=== PATIENT | female | born 1960 | race Caucasian/White ===

== ENCOUNTER 2019-05-27 16:16 | Emergency (ER) | payer MEDICARE, OTHER ==
[~2019-05-27] VITALS: Ht 165.1 cm; Wt 68.0 kg
--- NOTE | 2019-05-27 17:11 | PHYS DOC ---
Adult General Chief Complaint Chief Complaint: UPPER EXTREMITY INJURY HPI HPI Patient is a 58 year old female who presents with a fall that happened the legends while she was shopping after she slipped on ice around 4:00 PM. Patient is complaining of neck pain, left arm pain, and states she is on Plavix. She rates her pain as 9 out of 10 in severity and sharp. She's not had any medicine prior to arrival. (OTILIO SALGUERO APRN) Review of Systems Review of Systems Constitutional: Denies fever or chills [] Eyes: Denies change in visual acuity, redness, or eye pain [] HENT: Reports neck pain. Denies nasal congestion or sore throat [] Respiratory: Denies cough or shortness of breath [] Cardiovascular: No additional information not addressed in HPI [] GI: Denies abdominal pain, nausea, vomiting, bloody stools or diarrhea [] : Denies dysuria or hematuria [] Musculoskeletal: Reports L wrist, forearm, elbow, and shoulder pain.] Integument: Denies rash or skin lesions [] Neurologic: Denies headache, focal weakness or sensory changes [] Endocrine: Denies polyuria or polydipsia [] Complete systems were reviewed and found to be within normal limits, except as documented in this note. (OTILIO SALGUERO APRN) Current Medications Current Medications Current Medications Medications (Trade) Dose Ordered Sig/Kris Start Time Stop Time Status Last Admin Dose Admin Fentanyl Citrate (Fentanyl 2ml Vial) 75 mcg 1X ONCE 05/27/19 17:15 05/27/19 17:16 DC 05/27/19 17:15 75 MCG Ondansetron HCl (Zofran) 4 mg 1X ONCE 05/27/19 17:15 05/27/19 17:16 DC 05/27/19 17:15 4 MG (ARTIS BORREGO MD) Allergies Allergies Allergies Coded Allergies Type Severity Reaction Last Updated Verified iodine Allergy Severe Swelling 05/27/19 Yes Penicillins Allergy Intermediate Rash 05/27/19 Yes cefaclor Allergy Intermediate Rash 05/27/19 Yes erythromycin base Allergy Intermediate Rash 05/27/19 Yes (ARTIS BORREGO MD) Physical Exam Physical Exam Constitutional: Well developed, well nourished, no acute distress, non-toxic appearance. [] HENT: Normocephalic, atraumatic, bilateral external ears normal, oropharynx moist, no oral exudates, nose normal. [] Eyes: PERRLA, EOMI, conjunctiva normal, no discharge. [] Neck: Normal range of motion, c-spine tenderness, no stepoffs, supple, no stridor. [] Cardiovascular:Heart rate regular rhythm, no murmur [] Lungs & Thorax: Bilateral breath sounds clear to auscultation [] Abdomen: Bowel sounds normal, soft, no tenderness, no masses, no pulsatile masses. [] Skin: Warm, dry, no erythema, no rash. [] Back: No tenderness, no CVA tenderness. [] Extremities:Tenderness to L wrist, forearm, elbow, and humerus. Swelling at L wrist. Neurovascular intact. Neurologic: Alert and oriented X 3, normal motor function, normal sensory fun ction, no focal deficits noted. [] Psychologic: Affect normal, judgement normal, mood normal. [] (OTILIO SALGUERO APRN) Current Patient Data Vital Signs Vital Signs Date Time Temp Pulse Resp B/P (MAP) Pulse Ox O2 Delivery O2 Flow Rate FiO2 05/27/19 18:00 78 18 153/82 (105) 100 Room Air 05/27/19 16:45 98.0 98.0 (ARTIS BORREGO MD) EKG EKG [] (OTILIO SALGUERO APRN) Radiology/Procedures Radiology/Procedures [facility] [address] [place] [address] IMAGING REPORT Signed PATIENT: LEANN GOETZ JACCOUNT: [id number] : 1960 LOCATION: ER AGE: 58 SEX: F EXAM STATUS: REG ER ORD. PHYSICIAN: OTILIO SALGUERO APRN REASON: fall, HEAD AND NECK PAIN PROCEDURE: CT HEAD AND CERVICAL SPINE WO PQRS Compliance Statement: One or more of the following individualized dose reduction techniques were utilized for this examination: 1. Automated exposure control 2. Adjustment of the mA and/or kV according to patient size 3. Use of iterative reconstruction technique CT HEAD AND CERVICAL SPINE WITHOUT CONTRAST History: Fall, head and neck pain. Comparison: None. Procedure: Axial images are obtained of the head from the skull base through the vertex without IV contrast. Noncontrast helical CT of the cervical spine was performed. Axial, sagittal, and coronal reconstructions were obtained. Findings: The ventricles and sulci are normal for the patient's age. There is mild supratentorial white matter hypoattenuation. This is a nonspecific finding but is commonly due to chronic small vessel ischemic disease in a patient of this age. Other considerations include sequela of migraines or demyelinating disease. No mass-effect, midline shift, hemorrhage or obvious acute infarction is identified. Basilar cisterns are patent. Bone windows demonstrate no significant calvarial abnormality. The visualized paranasal sinuses are clear. Mastoid air cells are well aerated. There is no evidence of acute fracture or acute malalignment of the cervical spine. There is mild grade 1 anterolisthesis of C2 on C3. The alignment is otherwise maintained. There is no significant disc space narrowing. Facet joints are mildly hypertrophic. The left C2/C3 facet joint is fused. The craniovertebral junction is maintained. There are bilateral carotid bulb calcifications. The visualized lung apices are clear. IMPRESSION: 1. No acute intracranial abnormality. 2. No acute fracture of the cervical spine. Electronically signed by: William Shukla MD (05/27/2019 5:38 PM) [facility] DICTATED and SIGNED BY: WILLIAM SHUKLA MD DATE: 05/27/191737 [][facility] [address] [place] [address] IMAGING REPORT Signed PATIENT: LEANN GOETZ JACCOUNT: [id number] : 1960 LOCATION: ER AGE: 58 SEX: F EXAM STATUS: REG ER ORD. PHYSICIAN: OTILIO SALGUERO APRN REASON: fall PROCEDURE: FOREARM LEFT SHOULDER 2+V LEFT, WRIST 3V LEFT, HUMERUS LEFT, FOREARM LEFT, HAND LEFT 3V Clinical Indication: Fall, pain. Comparison: None. Findings: 3 views left hand No acute fracture or dislocation. Mild demineralization. No soft tissue swelling is seen. Left wrist, 3 views There is no acute fracture or dislocation. Joint spaces are maintained. There is smooth round subchondral lucency of the distal scaphoid, likely incidental. There is no soft tissue swelling. Left forearm, 2 views No acute fracture of the radius or ulna. No elbow dislocation or joint effusion. No soft tissue swelling. No radiopaque foreign body. Left humerus, 2 views There is no acute fracture of the humerus. No soft tissue swelling. Left shoulder, 3 views No acute fracture or dislocation. Mild degenerative changes. Changes of CABG. Visualized lungs clear. Soft tissues unremarkable. IMPRESSION: No acute fracture or dislocation. Electronically signed by: William Shukla MD (05/27/2019 6:13 PM) [facility] DICTATED and SIGNED BY: WILLIAM SHUKLA MD DATE: 05/27/191812 (OTILIO SALGUERO APRN) Course & Med Decision Making Course & Med Decision Making Pertinent Labs and Imaging studies reviewed. (See chart for details) Will give pain medication and get imaging. Imaging is unremarkable. Will d/c home. (OTILIO SALGUERO APRN) Course & Med Decision Making I was not involved in the care of this patient after 1800 on 05/27/2019. (ARTIS BORREGO MD) Dragon Disclaimer Dragon Disclaimer This electronic medical record was generated, in whole or in part, using a voice recognition dictation system. (OTILIO SALGUERO APRN) Departure Departure Impression: Primary Impression: Fall Disposition: 01 HOME, SELF-CARE Condition: STABLE Referrals: DARIUSZ ARRIAGA MD (PCP) Patient Instructions: Fall Prevention and Home Safety Additional Instructions: Thank you for visiting [facility]. We appreciate you trusting us with your care. If any additional problems come up don't hesitate to return to visit us. Please follow up with your primary care provider so they can plan additional care if needed and know about the problem that you had. If symptoms worsen come back to the Emergency Department. Any concerning symptoms that start such as chest pain, shortness of air, weakness or numbness on one side of the body, running high fevers or any other concerning symptoms return to the ER. Problem Qualifiers Primary Impression: Fall Encounter type: initial encounter Qualified Codes: W19.XXXA - Unspecified fall, initial encounter OTILIO SALGUERO APRN May 27, 2019 17:11 ARTIS BORREGO MD May 28, 2019 10:49
[2019-05-27] MEDS ORDERED: fentaNYL PF VIAL 100 MCG/2 ML VIAL IV ONE (17:15)
[2019-05-27] MEDS ORDERED: ONDANSETRON PF 4 MG/2 ML VIAL. IV ONE (17:15)
--- NOTE | 2019-05-27 17:41 | RAD ---
PQRS Compliance Statement: One or more of the following individualized dose reduction techniques were utilized for this examination: 1. Automated exposure control 2. Adjustment of the mA and/or kV according to patient size 3. Use of iterative reconstruction technique CT HEAD AND CERVICAL SPINE WITHOUT CONTRAST History: Fall, head and neck pain. Comparison: None. Procedure: Axial images are obtained of the head from the skull base through the vertex without IV contrast. Noncontrast helical CT of the cervical spine was performed. Axial, sagittal, and coronal reconstructions were obtained. Findings: The ventricles and sulci are normal for the patient's age. There is mild supratentorial white matter hypoattenuation. This is a nonspecific finding but is commonly due to chronic small vessel ischemic disease in a patient of this age. Other considerations include sequela of migraines or demyelinating disease. No mass-effect, midline shift, hemorrhage or obvious acute infarction is identified. Basilar cisterns are patent. Bone windows demonstrate no significant calvarial abnormality. The visualized paranasal sinuses are clear. Mastoid air cells are well aerated. There is no evidence of acute fracture or acute malalignment of the cervical spine. There is mild grade 1 anterolisthesis of C2 on C3. The alignment is otherwise maintained. There is no significant disc space narrowing. Facet joints are mildly hypertrophic. The left C2/C3 facet joint is fused. The craniovertebral junction is maintained. There are bilateral carotid bulb calcifications. The visualized lung apices are clear. IMPRESSION: 1. No acute intracranial abnormality. 2. No acute fracture of the cervical spine. Electronically signed by: William Shukla MD (05/27/2019 5:38 PM) [facility]
[2019-05-27 18:00] VITALS: BP 153/82
--- NOTE | 2019-05-27 18:17 | RAD ---
SHOULDER 2+V LEFT, WRIST 3V LEFT, HUMERUS LEFT, FOREARM LEFT, HAND LEFT 3V Clinical Indication: Fall, pain. Comparison: None. Findings: 3 views left hand No acute fracture or dislocation. Mild demineralization. No soft tissue swelling is seen. Left wrist, 3 views There is no acute fracture or dislocation. Joint spaces are maintained. There is smooth round subchondral lucency of the distal scaphoid, likely incidental. There is no soft tissue swelling. Left forearm, 2 views No acute fracture of the radius or ulna. No elbow dislocation or joint effusion. No soft tissue swelling. No radiopaque foreign body. Left humerus, 2 views There is no acute fracture of the humerus. No soft tissue swelling. Left shoulder, 3 views No acute fracture or dislocation. Mild degenerative changes. Changes of CABG. Visualized lungs clear. Soft tissues unremarkable. IMPRESSION: No acute fracture or dislocation. Electronically signed by: William Shukla MD (05/27/2019 6:13 PM) [facility]
== END 2019-05-27 18:51 | disposition home or self-care (01) ==
LOC: ER 16:16 → EDBD 16:16 → ER 18:51
DX: M54.2 Cervicalgia (principal); M79.602 Pain in left arm; R22.32 Localized swelling, mass and lump, left upper limb; Z88.8 Allergy status to other drugs, medicaments and biological substances; Z88.0 Allergy status to penicillin; Z88.1 Allergy status to other antibiotic agents; W00.0XXA Fall on same level due to ice and snow, initial encounter; Y93.89 Activity, other specified; Y92.89 Other specified places as the place of occurrence of the external cause; Y99.8 Other external cause status
CPT/HCPCS: 70450; 72125; 73030; 73060; 73090; 73110; 73130; 96374; 96375; 99284; J2405; J3010